=== PATIENT | female | born 1960 | race Caucasian/White ===

== ENCOUNTER 2017-08-26 21:17 | Emergency (ER) | payer BC, MEDICAID ==
[~2017-08-26] VITALS: Ht 165.1 cm; Wt 72.6 kg
[~2017-08-26 21:17] MED LIST: ATOR10TA PO
--- NOTE | 2017-08-26 22:00 | NUR ---
Dr. Ospina at bedside for MSE.
--- NOTE | 2017-08-26 22:10 | NUR ---
Patient discharged to home in stable conditon. Written and verbal after care instructions given. Patient verbalizes understanding of instructions. Patient ambulated out of ER with steady gait, no acute signs of distress, VSS, all belongings taken.
[2017-08-26 22:13] VITALS: BP 120/74
== END 2017-08-26 22:10 | disposition home or self-care (01) ==
LOC: ER 21:18
DX: L08.89 Other specified local infections of the skin and subcutaneous tissue (principal); B95.8 Unspecified staphylococcus as the cause of diseases classified elsewhere; E78.00 Pure hypercholesterolemia, unspecified; Z88.0 Allergy status to penicillin; Z90.710 Acquired absence of both cervix and uterus; Z79.899 Other long term (current) drug therapy
CPT/HCPCS: A4663

== ENCOUNTER 2017-09-18 18:11 | Emergency (ER) | payer BC ==
[~2017-09-18] VITALS: Ht 165.1 cm; Wt 72.6 kg
--- NOTE | 2017-09-18 19:43 | NUR ---
DR TRACI JAMES MD AT BEDSIDE FOR MSE.
--- NOTE | 2017-09-18 19:48 | NUR ---
PT C/O COUGH, SORE THROAT, AND GENERALIZED BODYACHES X2 DAYS. DENIES SOB OR CHEST PAIN. DENIES N/V.
--- NOTE | 2017-09-18 19:55 | NUR ---
Patient discharged to home in stable conditon. Written and verbal after care instructions given. Patient verbalizes understanding of instructions. Pt ambulated from ER w/ steady gait. No distress noted.
[2017-09-18 19:58] VITALS: BP 114/68
== END 2017-09-18 19:59 | disposition home or self-care (01) ==
LOC: ER 18:16
DX: B34.9 Viral infection, unspecified (principal); E78.00 Pure hypercholesterolemia, unspecified; Z88.0 Allergy status to penicillin; Z79.899 Other long term (current) drug therapy; Z90.710 Acquired absence of both cervix and uterus
CPT/HCPCS: A4663

== ENCOUNTER 2017-09-20 13:06 | Emergency (ER) | payer BC ==
[~2017-09-20] VITALS: Ht 165.1 cm; Wt 72.6 kg
[2017-09-20] MEDS ORDERED: SIMV10TA6 PO (13:14)
--- NOTE | 2017-09-20 13:52 | NUR ---
MSE DONE BY DR ANDERSON AT BEDSIDE ROOM 04B.
[2017-09-20] MEDS ORDERED: ONDANSETRON ODT 4 MG TAB.RAPDIS ONE (13:57)
[2017-09-20] MEDS ORDERED: PANTOPRAZOLE SODIUM 40 MG TABLET.DR PO ONE ×2 (13:58→14:00)
[2017-09-20] MEDS ORDERED: ONDANSETRON ODT 4 MG TAB.RAPDIS SL ONE (14:00)
--- NOTE | 2017-09-20 14:08 | NUR ---
Patient discharged to home in stable conditon. Written and verbal after care instructions given. Patient verbalizes understanding of instructions.
[2017-09-20 14:11] VITALS: BP 119/81
== END 2017-09-20 14:15 | disposition home or self-care (01) ==
LOC: ER 13:06
DX: A08.4 Viral intestinal infection, unspecified (principal); E78.00 Pure hypercholesterolemia, unspecified; Z90.710 Acquired absence of both cervix and uterus; Z88.0 Allergy status to penicillin; Z79.899 Other long term (current) drug therapy
CPT/HCPCS: A4663; Q0162

== ENCOUNTER 2018-02-12 10:16 | Emergency (ER) | payer BC ==
[~2018-02-12] VITALS: Ht 165.1 cm; Wt 74.8 kg
[~2018-02-12 10:16] MED LIST changes: -ATOR10TA PO; +SIMV10TA6 PO
[2018-02-12] MEDS ORDERED: MECLIZINE HCL 25 MG TABLET PO ONE (10:45)
[2018-02-12] MEDS ORDERED: MECLIZINE HCL 25 MG TABLET ONE (10:48)
[2018-02-12 10:59] LABS: BASOPHILS % (AUTO) 0.8 % (0.0-2.0); EOSINOPHILS # (AUTO) 0.1 K/uL (0.0-0.7); HEMATOCRIT 41.9 % (31.2-41.9); HEMOGLOBIN 14.3 g/dL (10.9-14.3); LYMPHOCYTES # (AUTO) 1.4 K/uL (20.0-40.0); LYMPHOCYTES % (AUTO) 23.2 % (20.5-51.5); MEAN CORPUSCULAR HEMOGLOBIN 31.1 uug (24.7-32.8); MEAN CORPUSCULAR HGB CONC 34 g/dL (32.3-35.6); MEAN CORPUSCULAR VOLUME 90.9 fL (75.5-95.3); MONOCYTES # (AUTO) 0.4 K/uL (2.0-10.0); MONOCYTES % (AUTO) 6.7 % (0.0-11.0); NEUTROPHILS % (AUTO) 68.3 % (38.5-71.5); PLATELET COUNT (AUTO) 180 K/uL (179-408); RED BLOOD CELL COUNT(AUTO) 4.61 MIL/uL (3.63-4.92); WHITE BLOOD COUNT (AUTO) 5.9 K/uL (3.8-11.8)
[2018-02-12 11:08] LABS: CREATININE 0.8 mg/dL (0.6-1.3); POTASSIUM 4.8 mmol/L (3.5-5.1)
--- NOTE | 2018-02-12 12:03 | NUR ---
Patient discharged to home in stable conditon. Written and verbal after care instructions given. Patient verbalizes understanding of instructions.
[2018-02-12 12:06] VITALS: BP 115/78
== END 2018-02-12 12:07 | disposition home or self-care (01) ==
LOC: ER 10:16
DX: R42 Dizziness and giddiness (principal); H81.10 Benign paroxysmal vertigo, unspecified ear; E78.00 Pure hypercholesterolemia, unspecified; Z90.710 Acquired absence of both cervix and uterus; Z88.0 Allergy status to penicillin
CPT/HCPCS: 36415; 80048; 84484; 85025; 93005; 99285; A4663; J8597; 70030-TC

== ENCOUNTER 2019-03-09 18:55 | Emergency (ER) | payer BC ==
[~2019-03-09] VITALS: Ht 165.1 cm; Wt 73.9 kg
[~2019-03-09 18:55] MED LIST changes: -SIMV10TA6 PO; +SIMV10TA98 PO
--- NOTE | 2019-03-09 19:13 | NUR ---
patient came from home. cheif complaint of bug bite to right foot and left elbow. patient stated it is painful, ariting at a 8, on a scale of 0-10. Patient states that the pain radiates to the sole of the foot when she applies weight and walks on it. Patient is in stable condition and VSS.
--- NOTE | 2019-03-09 19:17 | NUR ---
Dr. Brar in patients room at bedside.
[2019-03-09] MEDS ORDERED: SULFAMETH/TRIMETH 800/160 MG TABLET PO ONE (19:30)
[2019-03-09] MEDS ORDERED: SULFAMETH/TRIMETH 800/160 MG TABLET ONE (19:30)
--- NOTE | 2019-03-09 19:32 | NUR ---
Patient discharged to home in stable conditon. Written and verbal after care instructions given. Patient verbalizes understanding of instructions. Patient self ambulatory with steady gait. Exit care package and personal belongings taken home with the patient at discharge. Patient has good understanding of health. patient stated she will follow up with PCP.
[2019-03-09 19:36] VITALS: BP 138/78
== END 2019-03-09 19:37 | disposition home or self-care (01) ==
LOC: ER 18:58
DX: S40.862A Insect bite (nonvenomous) of left upper arm, initial encounter (principal); S90.861A Insect bite (nonvenomous), right foot, initial encounter; E78.00 Pure hypercholesterolemia, unspecified; Z88.0 Allergy status to penicillin; Z90.710 Acquired absence of both cervix and uterus; Z79.899 Other long term (current) drug therapy; W57.XXXA Bitten or stung by nonvenomous insect and other nonvenomous arthropods, initial encounter; Y93.89 Activity, other specified; Y92.89 Other specified places as the place of occurrence of the external cause; Y99.8 Other external cause status
CPT/HCPCS: A4663

== ENCOUNTER 2019-07-11 15:41 | Emergency (ER) | payer BC ==
[~2019-07-11] VITALS: Ht 165.1 cm; Wt 73.9 kg
--- NOTE | 2019-07-11 16:51 | NUR ---
Patient discharged to home in stable conditon. Written and verbal after care instructions given. Patient verbalizes understanding of instructions.
== END 2019-07-11 16:54 | disposition home or self-care (01) ==
LOC: ER 15:41
DX: B34.9 Viral infection, unspecified (principal); G43.909 Migraine, unspecified, not intractable, without status migrainosus; E78.5 Hyperlipidemia, unspecified; Z90.710 Acquired absence of both cervix and uterus; Z88.0 Allergy status to penicillin; Z88.2 Allergy status to sulfonamides; Z79.899 Other long term (current) drug therapy
CPT/HCPCS: A4663